=== PATIENT | male | born 1945 | race Two or more races ===

== ENCOUNTER → 2020-10-13 | Outpatient (CLI) | payer MEDICARE, OTHER ==
--- NOTE | 2020-10-13 15:56 | CT ---
EXAMINATION TYPE: CT ChestAbdPelvis w con DATE OF EXAM: 10/13/2020 COMPARISON: none HISTORY: H/O CLL, observ. for mets. CT DLP: 2272.5 mGycm Automated exposure control for dose reduction was used. CONTRAST: CT scan of the chest, abdomen and pelvis is performed with Oral Contrast and with IV Contrast, patien t injected with 80 mL of Isovue M300. FINDINGS: Chest CT was obtained following the abdomen and pelvis, contrast enhancement within the katie st was not performed due to the separation exams. There is a large right inguinal hernia containing some fat measuring approximately 12 cm x 11.6 cm by greater than 12 cm in cephalad to caudal dimension, the fat extending towards the right hemiscrotum is incompletely evaluated. LUNGS: The lungs are grossly clear, there is no concerning parenchymal mass or nodule identified. There is no pleural effusion or pneumothorax seen. The tracheobronchial tree is patent. MEDIASTINUM: There are no greater than 1 cm hilar or mediastinal lymph nodes. There are coronary art bobby calcifications. No pericardial effusion is seen. AORTA: No significant abnormality is seen. OTHER: There are changes of gynecomastia.. LIVER/GB: Liver shows a nodular contour, correlate for possible cirrhosis. No evident mass. Dependent high attenuation foci consistent with stones in the gallbladder neck region. PANCREAS: No significant abnormality is seen. SPLEEN: Spleen is enlarged. ADRENALS: No significant abnormality is seen. KIDNEYS: No significant abnormality is seen. REPRODUCTIVE ORGANS: Prostate shows associated calcification and is enlarged. BOWEL: Retained fecal debris is present throughout the distribution of the colon. The appendix is un remarkable. There is no evident bowel obstruction. Contrast has not coursed into the colon. FREE AIR: No Free Air visible. ASCITES: None seen. RETROPERITONEAL ADENOPATHY: No retroperitoneal adenopathy is seen. LYMPH NODES: No greater than 1 cm abdominal or pelvic lymph nodes are appreciated. URINARY BLADDER: Thickening of the urinary bladder may be due to chronic bladder outlet obstruction, difficult to exclude cystitis PELVIC ADENOPATHY: None visualized. OSSEOUS STRUCTURES: No significant abnormality is seen. IMPRESSION: Correlate for possible cirrhosis. Cholelithiasis. Possible underlying fecal stasis. Possi ble chronic bladder outlet obstruction. Large right inguinal hernia containing fat. Coronary artery d isease.
== END | disposition home or self-care (01) ==
LOC: RADCTMAIN 12:24
PROVIDERS: ATTEND Internal Medicine Hematology & Oncology
DX: I25.10 Atherosclerotic heart disease of native coronary artery without angina pectoris (principal); K80.20 Calculus of gallbladder without cholecystitis without obstruction; K40.90 Unilateral inguinal hernia, without obstruction or gangrene, not specified as recurrent; Z85.6 Personal history of leukemia
CPT/HCPCS: 82565; 84520; 71260; 74177; 36415; Q9967 ×2

== ENCOUNTER → 2020-11-19 | Day surgery (SDC) | payer MEDICARE, OTHER ==
[2020-11-17 11:50] VITALS: BMI 32.8
[~2020-11-19] MED LIST: LACTATED RINGERS 1,000 ML IV ONE; LACTATED RINGERS 1,000 ML IV SCH; PROPOFOL 10 MG/ML 20 ML VIAL IV ONE
[2020-11-19 09:32] VITALS: RESP 18; TEMP 97.8
--- NOTE | 2020-11-19 10:57 | P.GSHP ---
History of Present Illness H&P Date: 11/19/20 Chief Complaint: Screening colonoscopy 's is a 75-year-old male who presents today for screening colonoscopy. Patient denies any significant GI complaints. Past Medical History Past Medical History: GERD/Reflux, Hypertension Additional Past Medical History / Comment(s): inguinal hernia, gallstones, History of Any Multi-Drug Resistant Organisms: None Reported Past Surgical History: No Surgical Hx Reported Past Anesthesia/Blood Transfusion Reactions: Motion Sickness Smoking Status: Never smoker - Past Family History Mother Family Medical History: No Reported History Medications and Allergies Home Medications Medication Instructions Recorded Confirmed Type Garlic 1 each PO DAILY 11/17/20 11/17/20 History Lisinopril-Hctz 20-12.5 mg 1 tab PO DAILY 11/17/20 11/17/20 History [Zestoretic 20-12.5] Melatonin 10 mg PO HS 11/17/20 11/17/20 History Multivitamins, Thera [Multivitamin 1 tab PO DAILY 11/17/20 11/17/20 History (formulary)] [place] 3-6-9 1 tab PO DAILY 11/17/20 11/17/20 History Omeprazole [PriLOSEC] 20 mg PO AC-BRKFST 11/17/20 11/17/20 History busPIRone HCL 10 mg PO BID 11/17/20 11/17/20 History lisinopriL 20 mg PO HS 11/17/20 11/17/20 History Allergies Allergy/AdvReac Type Severity Reaction Status Date / Time No Known Allergies Allergy Verified 11/17/20 11:31 Surgical - Exam Vital Signs Temp Pulse Resp BP Pulse Ox 97.8 F 78 18 185/78 98 11/19/20 09:31 11/19/20 09:31 11/19/20 09:31 11/19/20 09:31 11/19/20 09:31 - General well developed, well nourished, no distress - Eyes PERRL - ENT normal pinna - Neck no masses - Respiratory normal expansion - Cardiovascular Rhythm: regular - Abdomen Abdomen: soft, non tender Assessment and Plan Assessment: We'll perform screening colonoscopy.
--- NOTE | 2020-11-19 11:14 | P.OP ---
Date of Procedure: 11/19/20 Preoperative Diagnosis: Screening colonoscopy Postoperative Diagnosis: Right colon polyp Procedure(s) Performed: Colonoscopy Anesthesia: MAC Surgeon: Henry Aviles Pathology: other (Right colon polyp) Condition: stable Disposition: PACU Description of Procedure: The patient's placed on the endoscopy table in the lateral position. Seemed IV sedation. Digital rectal exam was performed which revealed no abnormalities. Flexible colonoscope was then placed patient anus passed rotator colon. The ileocecal valve sutures. The cecum appeared normal. In the right colon there was a peduncular polyp was removed with a snare. The remainder the ascending colon, transverse colon, descending colon and sigmoid colon appeared normal. Scope was brought back the rectum this appeared normal. Scope withdrawn for patient.
[2020-11-19 11:17] VITALS: BP 156/84; PULSE 68
== END ==
LOC: ORWHC2ENDO 09:09
PROVIDERS: ATTEND Surgery
DX: Z12.11 Encounter for screening for malignant neoplasm of colon (principal); K63.5 Polyp of colon; I10 Essential (primary) hypertension; K21.9 Gastro-esophageal reflux disease without esophagitis; F41.8 Other specified anxiety disorders; K40.90 Unilateral inguinal hernia, without obstruction or gangrene, not specified as recurrent
CPT/HCPCS: 45385; 88305; J2704

== ENCOUNTER → 2023-07-26 | Outpatient (CLI) | payer MEDICARE, OTHER ==
--- NOTE | 2023-07-26 09:31 | US ---
EXAMINATION TYPE: US liver DATE OF EXAM: 07/26/2023 COMPARISON: CT 2020 CLINICAL INDICATION: Male, 78 years old with history of K74.60 CIRRHOSIS OF LIVER; TECHNIQUE: Multiple sonographic images of the right upper quadrant are obtained. FINDINGS: EXAM MEASUREMENTS: Liver Length: 15.4 cm Gallbladder Wall: 0.22 cm CBD: 0.27 cm Right Kidney: 9.1 x 4.8 x 4.4 cm [employer] NOTES: Pancreas: Obscured by bowel gas Liver: Somewhat heterogeneous Gallbladder: Stone noted within neck of gallbladder Evidence for sonographic Pinto's sign: No CBD: wnl Right Kidney: wnl IMPRESSION: 1. Liver is mildly heterogeneous which can be associated with underlying hepatocellular disease. No f ocal mass. 2. Cholelithiasis with no ultrasound evidence of cholecystitis.
== END | disposition home or self-care (01) ==
LOC: RADUSWWP 08:37
PROVIDERS: ATTEND Internal Medicine Hematology & Oncology
DX: K76.89 Other specified diseases of liver (principal); K80.20 Calculus of gallbladder without cholecystitis without obstruction; K74.60 Unspecified cirrhosis of liver; C91.10 Chronic lymphocytic leukemia of B-cell type not having achieved remission; I10 Essential (primary) hypertension; Z71.3 Dietary counseling and surveillance
CPT/HCPCS: 76705

== ENCOUNTER → 2024-08-08 | Outpatient (CLI) | payer MEDICARE, OTHER ==
--- NOTE | 2024-08-08 10:09 | US ---
EXAMINATION TYPE: US abdomen complete DATE OF EXAM: 08/08/2024 COMPARISON: 07/26/23 CLINICAL INDICATION: Male, 79 years old with history of K74.60 CIRRHOSIS; cirrhosis TECHNIQUE: Grayscale and color Doppler imaging of the abdomen was performed. FINDINGS: EXAM MEASUREMENTS: Liver Length: 16.0 cm Gallbladder Wall: 0.3 cm CBD: 0.2 cm, color Doppler imaging was utilized to isolate the common bile duct for measurement. Spleen: 12.2 cm Right Kidney: 10.2 x 5.2 x 5.1 cm Left Kidney: 9.1 x 3.9 x 5.2 cm [employer] NOTES: Pancreas: Obscured by bowel gas Liver: heterogeneous and coarse appearance Gallbladder: stone seen in neck Evidence for sonographic Pinto's sign: No CBD: wnl Spleen: heterogeneous and coarse appearance Right Kidney: wnl, No hydronephrosis, calculi or masses seen Left Kidney: wnl, No hydronephrosis, calculi or masses seen Upper IVC: limited due to bowel gas Abd Aorta: limited due to bowel gas The liver demonstrates a coarsened heterogenous appearance without focal lesion. No surface nodularit y. Limited visualization of the upper IVC and abdominal aorta without gross evidence of abnormality. The gallstone within the neck of the gallbladder measuring up to 0.8 cm. No gallbladder wall thickeni ng or surrounding fluid. Negative sonographic Pinto sign. Common bile duct is unremarkable. The gamboa creas is obscured by overlying bowel gas. The spleen is heterogenous and coarsened in appearance. No focal lesion identified. Kidneys are symmetric and free of hydronephrosis. No renal lesions are se en. IMPRESSION: 1. Coarse and heterogenous appearance of the liver corresponding to reported cirrhosis. No focal les ion identified. 2. Cholelithiasis with a gallstone within the gallbladder neck. No evidence for acute cholecystitis. 3. Nonspecific heterogenous and coarsened appearance of the nonenlarged spleen. [facility], , 08/08/2024 10:07 AM
== END | disposition home or self-care (01) ==
LOC: RADUSWWP 09:20
PROVIDERS: ATTEND Internal Medicine Hematology & Oncology
DX: K74.60 Unspecified cirrhosis of liver (principal); C91.10 Chronic lymphocytic leukemia of B-cell type not having achieved remission; I10 Essential (primary) hypertension; K80.20 Calculus of gallbladder without cholecystitis without obstruction; Z71.3 Dietary counseling and surveillance
CPT/HCPCS: 76700

== ENCOUNTER 2024-10-16 10:10 | Day surgery (SDC) | payer MEDICARE, OTHER ==
[2024-10-14 15:43] VITALS: BMI 27.2
[2024-10-16] MEDS: LACTATED RINGERS 1,000 ML IV SCH (10:46)
[2024-10-16] MEDS: IV FLUID CONTINUATION 1,000 ML IV ONE ×2 (10:51→11:15)
[2024-10-16 10:54] VITALS: TEMP 97.2
[2024-10-16] MEDS ORDERED: PROPOFOL 10 MG/ML 20 ML VIAL IV ONE (11:17)
[2024-10-16] MEDS ORDERED: LIDOCAINE 2% (PF) 20 MG/ML 5 ML VIAL ONE (11:17)
[2024-10-16 11:19] LABS: ALT 39 U/L (4-49); AST 36 U/L (17-59); African American GFR (CKD) 55 (>60 ml/min/1.73 sqM); Albumin 4.6 g/dL (3.5-5.0); Alkaline Phosphatase 83 U/L (38-126); Anion Gap 9 mmol/L; Blood Urea Nitrogen 32 mg/dL (9-20); Calcium 9.4 mg/dL (8.4-10.2); Carbon Dioxide 29 mmol/L (22-30); Chloride 97 mmol/L (98-107); Glucose 92 mg/dL (74-99); Non-African American GFR(CKD) 47 (>60 ml/min/1.73 sqM); Potassium 4.6 mmol/L (3.5-5.1); Sodium 135 mmol/L (137-145); Total Protein 8.0 g/dL (6.3-8.2)
--- NOTE | 2024-10-16 11:26 | P.PCN ---
Date of Procedure: 10/16/24 Procedure(s) Performed: BRIEF HISTORY: Patient is a 79-year-old, pleasant, white male scheduled for an upper endoscopy as a part of screening for esophageal varices as patient does have a history of liver cirrhosis. PROCEDURE PERFORMED: Esophagogastroduodenoscopy. PREOPERATIVE DIAGNOSIS: History of liver cirrhosis/screening for esophageal varices. IV sedation per anesthesia. PROCEDURE: After informed consent was obtained, the patient was brought into the endoscopy unit. IV sedation was administered by Anesthesia under continuous monitoring. Initially the Olympus GIF-140 video endoscope was inserted into the mouth. Esophagus intubated without any difficulty. It was gradually advanced into the stomach and duodenum and carefully examined. The bulb and the second part of the duodenum appeared normal. The scope at this time was withdrawn to the stomach, adequately insufflated with air, and upon careful examination, mucosa of the antrum, body, cardia and the fundus had changes consistent with mild to moderate portal hypertensive gastropathy. No gastric varices identified. The scope was then withdrawn into the esophagus. Small hiatal hernia. The GE junction was located at 39 cm from the incisors. The esophagus appeared normal. There were no erosions or ulcerations seen. No evidence of esophageal varices and the patient tolerated the procedure well. IMPRESSION: 1. Mild to moderate portal hypertensive gastropathy. 2. No evidence of gastric or esophageal varices 3. Small hiatal hernia. RECOMMENDATIONS: The findings of this examination were discussed with the patient as well as his family. He was advised to have a repeat upper endoscopy in 2 to 3 years to screen for esophageal varices..
[2024-10-16 11:47] VITALS: BP 132/94; PULSE 60; RESP 16
== END 2024-10-16 12:19 | disposition home or self-care (01) ==
LOC: ORWHC2ENDO 10:10
PROVIDERS: ATTEND Internal Medicine Gastroenterology
DX: K70.30 Alcoholic cirrhosis of liver without ascites (principal); K44.9 Diaphragmatic hernia without obstruction or gangrene; K21.9 Gastro-esophageal reflux disease without esophagitis; K76.6 Portal hypertension; F41.9 Anxiety disorder, unspecified; Z79.899 Other long term (current) drug therapy
CPT/HCPCS: 80053; 82105; 43235; J2704; J2003